=== PATIENT | female | born 2000 | race Two or more races ===

== ENCOUNTER 2025-02-20 20:00 | Emergency (ER) | payer MEDICAID ==
[~2025-02-20] VITALS: Ht 160 cm; Wt 49.8 kg
[2025-02-20 20:01] VITALS: BP 125/86; PULSE 77; RESP 16; TEMP 99.1; O2SAT 100
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
== END 2025-02-21 00:28 | disposition home or self-care (01) ==
LOC: ER 20:00
DX: S13.4XXA Sprain of ligaments of cervical spine, initial encounter (principal); S29.012A Strain of muscle and tendon of back wall of thorax, initial encounter; S33.5XXA Sprain of ligaments of lumbar spine, initial encounter; S46.912A Strain of unspecified muscle, fascia and tendon at shoulder and upper arm level, left arm, initial encounter; V89.2XXA Person injured in unspecified motor-vehicle accident, traffic, initial encounter; Y93.89 Activity, other specified; Y92.488 Other paved roadways as the place of occurrence of the external cause; Y99.8 Other external cause status
CPT/HCPCS: 72040; 72070; 72100; 73030